=== PATIENT | male | born 1990 | race Two or more races ===

== ENCOUNTER 2017-05-04 21:59 | Emergency (ER) | payer OTHER ==
[2017-05-04 22:08] VITALS: BP 139/71; PULSE 58; TEMP 98.2; BMI 23.0
[2017-05-04] MEDS ORDERED: diphenhydrAMINE HCL 25 MG CAPSULE (FP) PO ONE ×2 (22:48→23:02)
[2017-05-04] MEDS ORDERED: IBUPROFEN 600 MG TABLET (FP) PO ONE ×2 (22:48→23:02)
--- NOTE | 2017-05-04 23:22 | PDOC ---
History of Present Illness - General Chief Complaint: Bite Stated Complaint: SWOLLEN ANKLE Time Seen by Provider: 05/04/17 22:21 History Source: Patient Exam Limitations: No Limitations - History of Present Illness Initial Comments: 05/04/17 22:51 The patient is a 26M with no PMH who presents to the ED after sustaining a bug bite. He states that this is the second day of him feeling the bite. He does not recall what bit him. He states that there is swelling, itching, and redness around his L ankle. Past History - Past Medical History Allergies/Adverse Reactions: Allergies Allergy/AdvReac Type Severity Reaction Status Date / Time Penicillins Allergy Verified 05/04/17 22:08 Home Medications: Ambulatory Orders No Home Medications 0 dose .ROUTE UTDICT 08/03/13 Other medical history: denies - Suicide/Smoking/Psychosocial Hx Smoking History: Never smoked Number of Cigarettes Smoked Daily: 20 Information on smoking cessation initiated: No Hx Alcohol Use: No Drug/Substance Use Hx: No Substance Use Type: Marijuana Review of Systems - Review of Systems Able to Perform ROS?: Yes Is the patient limited Urdu proficient: No Constitutional: No: Chills, Fever Respiratory: No: Cough, Orthopnea, SOB with Exertion, SOB at Rest Cardiac (ROS): No: Chest Pain, Palpitations ABD/GI: No: Constipated, Diarrhea, Nausea, Vomiting : No: Burning, Dysuria Musculoskeletal: No: Back Pain, Muscle Weakness Integumentary: Yes: Lesions (on L ankle) Neurological: No: Headache, Numbness, Tingling, Weakness *Physical Exam - Vital Signs Last Vital Signs Temp Pulse Resp BP Pulse Ox 98.2 F 58 L 18 139/71 100 05/04/17 22:06 05/04/17 22:06 05/04/17 22:06 05/04/17 22:06 05/04/17 22:06 - Physical Exam General Appearance: Yes: Nourished, Appropriately Dressed. No: Apparent Distress HEENT: positive: Normal Voice, Hearing Grossly Normal Respiratory/Chest: positive: Lungs Clear, Normal Breath Sounds. negative: Chest Tender, Accessory Muscle Use Cardiovascular: positive: Regular Rhythm, Regular Rate, S1, S2. negative: Diastolic Murmur, Systolic Murmur Gastrointestinal/Abdominal: positive: Flat, Soft. negative: Tender Extremity: positive: Erythema, Inflammation (on L ankle; 1.5cm erythematous lesion with scab and induration on center). negative: Swelling, Calf Tenderness Integumentary: positive: Dry, Warm Neurologic: positive: Fully Oriented, Alert, Normal Mood/Affect, Normal Response , Motor Strength 5/5 Medical Decision Making - Medical Decision Making 05/04/17 23:24 The patient is a 26M with no PMH who presents with an insect bite. I will give motrin and benadryl and reassess the patient. 05/04/17 23:54 On reassessment, there is evidence of cellulitis on the lateral L ankle. He will receive 1 dose of clindamycin in the ED and prescribed this outpatient. Patient agrees to finish antibiotics and is ready for discharge. *DC/Admit/Observation/Transfer Diagnosis at time of Disposition: Insect bite Qualifiers: Encounter type: initial encounter Qualified Code(s): W57.XXXA - Bitten or stung by nonvenomous insect and other nonvenomous arthropods, initial encounter - Discharge Dispostion Disposition: HOME Condition at time of disposition: Stable Admit: No - Patient Instructions Printed Discharge Instructions: How to Care for an Insect Bite or Sting Additional Instructions: Please return to the ER if symptoms persist, worsen, or if new symptoms arise. Please take your antibiotics as prescribed. Please follow up with a primary care doctor at: [place] [address] Medical:
[2017-05-04] MEDS ORDERED: CLINDAMYCIN HCL 300 MG CAPSULE PO ONE (23:32)
[2017-05-04] MEDS ORDERED: CLINDAMYCIN HCL 150 MG CAPSULE (FP) ONE (23:41)
--- NOTE | 2017-05-04 23:51 | PDOC ---
Attending Attestation - Resident Resident Name: JamesBabak rasmussen - HPI HPI: 05/04/17 23:49 Bug bites to lateral left ankle yesterday, now more redness and swelling; not much warmth. - Physicial Exam PE: 05/04/17 23:50 Pt will have clinda 300mg QID Otherwise afebrile; agree with resident's exam - Medical Decision Making 05/04/17 23:54 Pt will return for worsening cellulitis
== END 2017-05-05 00:11 | disposition home or self-care (01) ==
LOC: JER 21:59
DX: S90.562A Insect bite (nonvenomous), left ankle, initial encounter (principal); L03.116 Cellulitis of left lower limb; W57.XXXA Bitten or stung by nonvenomous insect and other nonvenomous arthropods, initial encounter; Y93.89 Activity, other specified; Y92.89 Other specified places as the place of occurrence of the external cause; Y99.8 Other external cause status
CPT/HCPCS: 99282-25